=== PATIENT | female | born 1980 | race Caucasian/White ===

== ENCOUNTER → 2017-02-03 15:14 | Outpatient (CLI) | payer OTHER ==
[2012-10-13 09:19] VITALS: BMI 25.0
== END | disposition home or self-care (01) ==
LOC: D.LABREF 15:14
PROVIDERS: Family Medicine
DX: G62.9 Polyneuropathy, unspecified (principal)

== ENCOUNTER → 2017-10-02 10:29 | Outpatient (CLI) | payer OTHER ==
[2012-10-13 09:19] VITALS: BMI 25.0
== END | disposition home or self-care (01) ==
LOC: D.CT 10:29
DX: R06.02 Shortness of breath (principal)